=== PATIENT | female | born 1995 | race Caucasian/White ===

== ENCOUNTER 2020-12-17 12:19 | Emergency (ER) | payer BC ==
[~2020-12-17] VITALS: Ht 160 cm; Wt 142.1 kg
[2020-12-17] MEDS ORDERED: ZESTRIL10 M1 PO (12:38)
[2020-12-17 12:56] LABS: BASO # 0.02 K/mm3 (0.02-0.10); EOS # 0.09 K/mm3 (0.04-0.40); EOS % 0.5 % (1.0-5.0); HEMATOCRIT 35.5 % (37.0-47.0); HEMOGLOBIN 10.7 g/dL (12.5-16.0); LYMPH# 0.95 K/mm3 (1.50-4.00); MEAN CELL VOLUME 78 fl (78-100); MEAN CORPUSCULAR HEMOGLOBIN 24 pg (27-31); MEAN CORPUSCULAR HGB CONC 30 g/dL (33-37); MEAN PLATELET VOLUME 10.1 fl (7.4-10.4); MONO # 0.72 K/mm3 (0.20-0.80); NEU # 17.46 K/mm3 (1.40-6.50); PLATELET COUNT 491 K/mm3 (130-400); RED BLOOD COUNT 4.55 M/mm3 (4.10-5.30); RED CELL DISTRIBUTION WIDTH 14.9 % (11.5-14.5); WHITE BLOOD COUNT 19.3 K/mm3 (4.8-10.8)
[2020-12-17 13:06] LABS: ALBUMIN 3.8 g/dL (3.5-5.0); POTASSIUM 4.2 mmol/L (3.5-5.1)
[2020-12-17 13:07] LABS: CALCIUM 9.5 mg/dL (8.3-10.5)
[2020-12-17 13:08] LABS: TOTAL PROTEIN 7.8 g/dL (6.4-8.3)
[2020-12-17 13:10] LABS: TOTAL BILIRUBIN 0.6 mg/dL (0.2-1.2)
[2020-12-17 15:31] LABS: D-DIMER 0.93 mg/L FEU (0.15-0.50)
[2020-12-17] MEDS ORDERED: MORGIDOX 1X100100 MG PO (16:43)
[2020-12-17] MEDS ORDERED: PREDNISONE20 M1 PO (16:44)
[2020-12-17 16:54] VITALS: BP 137/96
== END 2020-12-17 16:54 | disposition home or self-care (01) ==
LOC: ED 12:19
PROVIDERS: Nurse Practitioner
DX: J18.1 Lobar pneumonia, unspecified organism (principal); I10 Essential (primary) hypertension; Z20.822 Contact with and (suspected) exposure to COVID-19; Z79.899 Other long term (current) drug therapy
CPT/HCPCS: J0696; J7030; Q9967

== ENCOUNTER → 2021-01-01 | Outpatient (CLI) | payer BC ==
[~2021-01-01] MED LIST: MORGIDOX 1X100100 MG PO; PREDNISONE20 M1 PO; ZESTRIL10 M1 PO
== END ==
LOC: RAD 16:33
DX: J18.9 Pneumonia, unspecified organism (principal)

== ENCOUNTER 2021-08-09 11:53 | Emergency (ER) | payer OTHER, BC ==
[~2021-08-09] VITALS: Ht 160 cm; Wt 136.2 kg
[2021-08-09 12:33] LABS: BASO # 0.02 K/mm3 (0.02-0.10); EOS # 0.15 K/mm3 (0.04-0.40); EOS % 1.7 % (1.0-5.0); HEMATOCRIT 36.5 % (37.0-47.0); HEMOGLOBIN 10.9 g/dL (12.5-16.0); LYMPH# 2.19 K/mm3 (1.50-4.00); MEAN CELL VOLUME 73 fl (78-100); MEAN CORPUSCULAR HEMOGLOBIN 22 pg (27-31); MEAN CORPUSCULAR HGB CONC 30 g/dL (33-37); MONO # 0.51 K/mm3 (0.20-0.80); PLATELET COUNT 454 K/mm3 (130-400); RED BLOOD COUNT 4.99 M/mm3 (4.10-5.30); RED CELL DISTRIBUTION WIDTH 16.1 % (11.5-14.5); WHITE BLOOD COUNT 8.9 K/mm3 (4.8-10.8)
[2021-08-09 12:43] LABS: ALBUMIN 3.8 g/dL (3.5-5.0); POTASSIUM 3.7 mmol/L (3.5-5.1)
[2021-08-09 12:44] LABS: PROTHROMBIN TIME 10.7 SECONDS (9.0-12.0)
[2021-08-09 12:45] LABS: CALCIUM 8.8 mg/dL (8.3-10.5)
[2021-08-09 12:46] LABS: TOTAL PROTEIN 6.7 g/dL (6.4-8.3)
[2021-08-09 12:48] LABS: TOTAL BILIRUBIN 0.6 mg/dL (0.2-1.2)
[2021-08-09] MEDS ORDERED: ONDANSETRON HYDR4 MG PO (14:08)
[2021-08-09] MEDS ORDERED: CYCLOBENZAPRINE10 M1 PO (14:08)
[2021-08-09 14:25] VITALS: BP 160/103
[2021-08-09] MEDS ORDERED: ZESTRIL10 M1 PO (14:26)
== END 2021-08-09 14:35 | disposition home or self-care (01) ==
LOC: ED 11:53
PROVIDERS: Physician Assistant
DX: M54.2 Cervicalgia (principal); S20.01XA Contusion of right breast, initial encounter; S30.1XXA Contusion of abdominal wall, initial encounter; I10 Essential (primary) hypertension; R00.0 Tachycardia, unspecified; Z28.311 Partially vaccinated for COVID-19; Z79.899 Other long term (current) drug therapy; V43.52XA Car driver injured in collision with other type car in traffic accident, initial encounter; Y92.410 Unspecified street and highway as the place of occurrence of the external cause
CPT/HCPCS: J2360; J2405; Q9967

== ENCOUNTER → 2021-08-19 | Outpatient (CLI) | payer OTHER, BC ==
[~2021-08-19] MED LIST changes: +CYCLOBENZAPRINE10 M1 PO; +ONDANSETRON HYDR4 MG PO
[2021-08-19 12:20] LABS: HEMATOCRIT 37.4 % (37.0-47.0); HEMOGLOBIN 11.1 g/dL (12.5-16.0); MEAN PLATELET VOLUME 9.8 fl (7.4-10.4); RED BLOOD COUNT 5.07 M/mm3 (4.10-5.30); RED CELL DISTRIBUTION WIDTH 16.6 % (11.5-14.5); WHITE BLOOD COUNT 7.4 K/mm3 (4.8-10.8)
[2021-08-19 12:34] LABS: POTASSIUM 4.3 mmol/L (3.5-5.1)
[2021-08-19 12:35] LABS: CALCIUM 9.2 mg/dL (8.3-10.5)
== END ==
LOC: LAB 11:45
PROVIDERS: Family Medicine
DX: D50.9 Iron deficiency anemia, unspecified (principal); S20.211A Contusion of right front wall of thorax, initial encounter; S20.01XA Contusion of right breast, initial encounter; R73.9 Hyperglycemia, unspecified; I10 Essential (primary) hypertension